=== PATIENT | female | born 1985 | race Caucasian/White ===

== ENCOUNTER 2016-11-30 13:51 | Emergency (ER) | payer MEDICAID ==
--- NOTE | 2016-11-30 15:46 | ER Document Report ---
HPI - HPI Pain Level: 0 Context: Patient is a 31-year-old female presents to the ED complaining of a pruritic rash to her hands, neck, arms, and a few spots on her back. Patient states that she had something like this before and was diagnosed as a contact dermatitis. Patient states that she is new to the area. She denies any recent insect bites, change in detergents, new clothes, new foods/drinks. She questions exposure to poisonous plants. Patient does have chronic allergies and takes Claritin once a day. She has been applying [id number] steroid cream with minimal benefit. He has not noticed any purulent discharge, red streaks, fever, URI, sore throat, chest pain, palpitations, shortness of breath , cough, abdominal pain, N/V/D/C, or dysuria. - ROS Notes: REVIEW OF SYSTEMS: CONSTITUTIONAL : Denies fever, chills, or sweats. Denies recent illness. EENT: Denies eye, ear, throat, or mouth pain or symptoms. Denies nasal or sinus congestion or discharge. Denies throat, tongue, or mouth swelling or difficulty swallowing. CARDIOVASCULAR: Denies chest pain. Denies palpitations or racing or irregular heart beat. Denies ankle edema. RESPIRATORY: Denies cough, cold, or chest congestion. Denies shortness of breath, difficulty breathing, or wheezing. GASTROINTESTINAL: Denies abdominal pain or distention. Denies nausea, vomiting , or diarrhea. Denies blood in vomitus, stools, or per rectum. Denies black, tarry stools. Denies constipation. GENITOURINARY: Denies difficulty urinating, painful urination, burning, frequency, blood in urine, or discharge. FEMALE GENITOURINARY: Denies vaginal bleeding, heavy or abnormal periods, irregular periods. Denies vaginal discharge or odor. MUSCULOSKELETAL: Denies back or neck pain or stiffness. Denies joint pain or swelling. SKIN: as above. HEMATOLOGIC : Denies easy bruising or bleeding. LYMPHATIC: Denies swollen, enlarged glands. NEUROLOGICAL: Denies confusion or altered mental status. Denies passing out or loss of consciousness. Denies dizziness or lightheadedness. Denies headache. Denies weakness or paralysis or loss of use of either side. Denies problems with gait or speech. Denies sensory loss, numbness, or tingling. Denies seizures. PSYCHIATRIC: Denies anxiety or stress. Denies depression, suicidal ideation, or homicidal ideation. ALL OTHER SYSTEMS REVIEWED AND NEGATIVE. Dictation was performed using [employer] voice recognition software - DERM Skin Color: Normal Past Medical History - Social History Smoking Status: Never Smoker Frequency of alcohol use: Occasional Drug Abuse: None Family History: Reviewed & Not Pertinent Patient has suicidal ideation: No Patient has homicidal ideation: No Renal/ Medical History: Denies: Hx Peritoneal Dialysis Vertical Provider Document - CONSTITUTIONAL Notes: PHYSICAL EXAMINATION: GENERAL: Well-appearing, well-nourished and in no acute distress. HEAD: Atraumatic, normocephalic. EYES: Pupils equal round and reactive to light, extraocular movements intact, sclera anicteric, conjunctiva are normal. ENT: EAC clear b/l. TM's intact b/l without erythema, fluid, or perforation. Nares patent and without discharge. oropharynx clear without exudates. No tonsilar hypertrophy or erythema. Moist mucous membranes. No sinus tenderness. NECK: Normal range of motion, supple without lymphadenopathy LUNGS: Breath sounds clear to auscultation bilaterally and equal. No wheezes rales or rhonchi. HEART: Regular rate and rhythm without murmurs, rubs, gallops. ABDOMEN: Soft, nontender, nondistended abdomen. No guarding, no rebound. No masses appreciated. Normal bowel sounds present. No CVA tenderness bilaterally. Musculoskeletal: FROM to passive/active. Strength 5+/5. Extremities: No cyanosis, clubbing, or edema b/l. Peripheral pulses 2+. Capillary refill less than 3 seconds. NEUROLOGICAL: Cranial nerves grossly intact. Normal speech, normal gait. Normal sensory, motor exams PSYCH: Normal mood, normal affect. SKIN: Warm, Dry, normal turgor. + small (0.5-1cm) maculopapular erythemic areas on the posterior hands b/l, arms, posterior neck, superior back. Non- tender. No d/c, streaks, or abscess. - INFECTION CONTROL TRAVEL OUTSIDE OF THE [place] IN LAST 30 DAYS: No - RESPIRATORY O2 Sat by Pulse Oximetry: 99 Course - Re-evaluation Re-evalutation: 11/30/16 16:01 31-year-old female who presents with a dermatitis, suspect contact dermatitis. Vitals are stable. PE otherwise unremarkable without any red flag symptoms. Solu-Medrol 125 mg given IM today. I will send her home with a Medrol Dosepak. Advised to refrain from [id number] ointments until p.o. medications are finished. She may continue to use her Claritin and/or Benadryl as needed. Encouraged patient to establish with a PCM. Consider consult with dermatology should symptoms persist. 11/30/16 16:04 - Vital Signs Vital signs: Temp Pulse Resp BP Pulse Ox 98.7 F 80 16 116/76 99 11/30/16 14:03 11/30/16 14:03 11/30/16 14:03 11/30/16 14:03 11/30/16 14:03 Discharge - Discharge Clinical Impression: Dermatitis Condition: Stable Disposition: HOME, SELF-CARE Instructions: Corticosteroid Medication ([facility]), Topical Steroid Cream or Ointment ([facility]) Additional Instructions: Take medication as directed. Keep the skin clean and dry. Monitor for any signs of fever, purulent drainage, red streaks, pain, or worsening rash. Establish with a PCM. Return to the ED and/or urgent care as needed for worsening symptoms. Consider consult with dermatology should symptoms persist. Prescriptions: Methylprednisolone [Medrol Dosepack (4 mg/Tab) 21 Tab/Dosepak] 4 mg PO ASDIR PRN #21 tab.ds.pk PRN Reason:
[2016-11-30] MEDS ORDERED: METHYLPREDNISOLONE INJ 125 MG/2 ML SDV IV ONE (15:52)
[2016-11-30] MEDS ORDERED: METHYLPREDNISOLONE INJ 125 MG/2 ML SDV IM ONE (16:38)
[2016-11-30 17:06] VITALS: BP 111/84
== END 2016-11-30 17:07 | disposition home or self-care (01) ==
LOC: ER 13:51
DX: L30.9 Dermatitis, unspecified (principal)
CPT/HCPCS: 99282; 96372; J2930

== ENCOUNTER 2016-12-14 11:43 | Emergency (ER) | payer MEDICAID ==
[2016-12-14 12:06] VITALS: BP 115/77
[2016-12-14] MEDS ORDERED: PREDNISONE 20 MG TABLET PO ONE (12:24)
--- NOTE | 2016-12-14 12:24 | ER Document Report ---
HPI - HPI Patient complains to provider of: skin rash Onset: Other - 2 wks Onset/Duration: Persistent Quality of pain: No pain Pain Level: Denies Context: Patient presents complaining of pruritic skin rash the flexural aspect of bilateral upper extremities and posterior knee area. Patient also complains of rash to dorsal aspect of bilateral hands that has had some mild blistering. Patient denies any new contacts, foods, detergents or lotions. Patient denies any new medications. Patient does report a previous history of eczema. Patient was evaluated for this recently in the emergency department and put on a short course of steroid medication. Patient states rash initially resolved but after she finished the steroids the rash returned. Associated Symptoms: Other - rash. denies: Fever Exacerbated by: Denies Relieved by: Denies Similar symptoms previously: Yes Recently seen / treated by doctor: Yes - ROS ROS below otherwise negative: Yes Systems Reviewed and Negative: Yes All other systems reviewed and negative - CONSTITUTIONAL Constitutional: DENIES: Fever, Chills - EENT EENT: DENIES: Sore Throat - RESPIRATORY Respiratory: DENIES: Coughing - GASTROINTESTINAL Gastrointestinal: DENIES: Nausea, Patient vomiting - MUSCULOSKELETAL Musculoskeletal: DENIES: Extremity pain - DERM Skin Color: Normal Skin Problems: Rash Past Medical History - General Information source: Patient - Social History Smoking Status: Never Smoker Frequency of alcohol use: Occasional Drug Abuse: None Occupation: none Lives with: Family Family History: Reviewed & Not Pertinent Patient has suicidal ideation: No Patient has homicidal ideation: No Renal/ Medical History: Denies: Hx Peritoneal Dialysis Skin Medical History: Reports Hx Eczema Surgical Hx: Negative Vertical Provider Document - CONSTITUTIONAL Agree With Documented VS: Yes Exam Limitations: No Limitations General Appearance: WD/WN, No Apparent Distress - INFECTION CONTROL TRAVEL OUTSIDE OF THE [place] IN LAST 30 DAYS: No - HEENT HEENT: Atraumatic, Normal ENT Exam - NECK Neck: Normal Inspection - RESPIRATORY Respiratory: Breath Sounds Normal, No Respiratory Distress O2 Sat by Pulse Oximetry: 96 - CARDIOVASCULAR Cardiovascular: Regular Rate, Regular Rhythm, No Murmur - BACK Back: Normal Inspection - MUSCULOSKELETAL/EXTREMETIES Musculoskeletal/Extremeties: MAEW - NEURO Level of Consciousness: Awake, Alert, Appropriate Motor/Sensory: No Motor Deficit - DERM Integumentary: Warm, Dry, Rash - Erythematous patchy rash with scattered vesicular lesions concerning for contact dermatitis to dorsal aspect of bilateral hands. Patient with scaling mildly erythematous rash to antecubital fossa bilateral arms Course - Vital Signs Vital signs: Temp Pulse Resp BP Pulse Ox 98.4 F 83 20 115/77 96 12/14/16 12:04 12/14/16 12:04 12/14/16 12:04 12/14/16 12:04 12/14/16 12:04 Discharge - Discharge Clinical Impression: Eczema Qualifiers: Eczema type: unspecified Qualified Code(s): L30.9 - Dermatitis, unspecified Contact dermatitis Qualifiers: Contact dermatitis type: unspecified Contact dermatitis trigger: unspecified trigger Qualified Code(s): L25.9 - Unspecified contact dermatitis, unspecified cause Condition: Stable Disposition: HOME, SELF-CARE Instructions: Contact Dermatitis ([facility]), Atopic Dermatitis (Eczema) ([facility]), Steroid Medication, Use of Diphenhydramine Additional Instructions: Return immediately for any new or worsening symptoms Followup with your primary care provider, call tomorrow to make a followup appointment Follow up with dermatology for further evaluation, call for an appointment Prescriptions: Prednisone [Deltasone 5 mg Tablet] 5 mg PO ASDIR PRN #100 tablet PRN Reason: Referrals: JASPER WEINER DO [ACTIVE STAFF] - Follow up in 3-5 days
== END 2016-12-14 12:45 | disposition home or self-care (01) ==
LOC: ER 11:43
DX: L25.9 Unspecified contact dermatitis, unspecified cause (principal)
CPT/HCPCS: 99282; J7512

== ENCOUNTER 2017-01-01 11:31 | Emergency (ER) | payer MEDICAID ==
[2017-01-01] MEDS ORDERED: EPINEPHRINE INJ/PF 1 MG/1 ML AMPULE IM ONE (12:33)
[2017-01-01] MEDS ORDERED: METHYLPREDNISOLONE ACETATE INJ 40 MG/1 ML ML IM PRN (12:33)
[2017-01-01] MEDS ORDERED: LORATADINE 10 MG TABLET PO ONE (12:35)
[2017-01-01] MEDS ORDERED: FAMOTIDINE 20 MG TABLET PO ONE (12:35)
[2017-01-01] MEDS ORDERED: METHYLPREDNISOLONE 4 MG TABLET PO ONE ×2 (13:06→13:30)
--- NOTE | 2017-01-01 13:10 | ER Document Report ---
HPI - HPI Patient complains to provider of: rash and facial swelling Pain Level: 1 Context: Patient is a 31-year-old female who returns emergency department complaining of facial swelling and a rash on her left hand. Patient states that she moved here in August and since September has had rashes on and off requiring steroids which completely relieved the rash. Patient states that she initially presented to urgent care with a rash on her left hand was given extra medication and it went away. Patient states that she has been evaluated twice in the emergency department with initial presentation of a rash on her left hand and facial swelling. She states that she is on steroids the swelling and rash completely resolved. But the day after she stopped taking steroids at all returns. Patient states that she has noted that she has used a new laundry detergent as well as baby wipes over the past 5 weeks. She has since switched over the past 2 days. She is also tried to avoid petting her dog for concern of any plants alleles on his for her. Patient states she has an appointment scheduled with her primary care provider on of this week to be referred to a derrick engineer. She states that she does not have any other allergies, any other medical problems. She states that the rashes are not itchy and that the swelling in her eyes is not itchy. - CARDIOVASCULAR Cardiovascular: DENIES: Chest pain - DERM Skin Color: Normal Past Medical History - Social History Smoking Status: Former Smoker Chew tobacco use (# tins/day): No Frequency of alcohol use: Occasional Drug Abuse: None Family History: Reviewed & Not Pertinent Patient has suicidal ideation: No Patient has homicidal ideation: No Renal/ Medical History: Denies: Hx Peritoneal Dialysis Skin Medical History: Reports Hx Eczema Past Surgical History: Reports: Hx Breast Surgery - augmentation, Hx Kidney ( Renal Surgery) - stent placement & removal - Immunizations Hx Diphtheria, Pertussis, Tetanus Vaccination: Yes Vertical Provider Document - CONSTITUTIONAL Agree With Documented VS: Yes Exam Limitations: No Limitations General Appearance: WD/WN, No Apparent Distress - INFECTION CONTROL TRAVEL OUTSIDE OF THE [place] IN LAST 30 DAYS: No - HEENT HEENT: Atraumatic, Normal ENT Exam, Normocephalic, PERRLA Notes: Uvula midline. Airway patent. No evidence of tonsillar enlargement, peritonsillar abscess, retropharyngeal abscess. - NECK Neck: Normal Inspection. negative: Lymphadenopathy-Left, Lymphadenopathy-Right - RESPIRATORY Respiratory: Breath Sounds Normal, No Respiratory Distress, Chest Non-Tender. negative: Rales, Rhonchi, Wheezing O2 Sat by Pulse Oximetry: 98 - CARDIOVASCULAR Cardiovascular: Regular Rate, Regular Rhythm, No Murmur Pulses: Normal: Radial - GI/ABDOMEN Gastrointestinal: Abdomen Soft, Abdomen Non-Tender, No Organomegaly, Normal Bowel Sounds - MUSCULOSKELETAL/EXTREMETIES Musculoskeletal/Extremeties: MAEW, FROM, Non-Tender, No Edema. negative: Eccymosis - NEURO Level of Consciousness: Awake, Alert, Appropriate Motor/Sensory: No Motor Deficit, No Sensory Deficit - DERM Integumentary: Warm, Dry, Rash - papular rash noted on the volar surface of the patient does have evidence of left hand without any evidence of erythema, tenderness. Swelling noted around eyes with mild erythema, nontender to palpation. No evidence of surrounding cellulitis. Course - Re-evaluation Re-evalutation: 01/01/17 14:28 Patient is a 31-year-old female who is hemodynamic stable, no acute distress and afebrile. No evidence of respiratory distress. Patient seems to be suffering from a subacute contact dermatitis with systemic reaction. Will place patient on steroid taper and to follow-up with her primary care and possible referral to an english and reading instructor. Patient is agreeable with plan. Patient stable for discharge - Vital Signs Vital signs: Temp Pulse Resp BP Pulse Ox 98.5 F 103 H 16 127/86 H 98 01/01/17 11:35 01/01/17 11:35 01/01/17 11:35 01/01/17 11:35 01/01/17 11:35 Discharge - Discharge Clinical Impression: Atopic dermatitis Qualifiers: Atopic dermatitis type: unspecified Qualified Code(s): L20.9 - Atopic dermatitis, unspecified Condition: Good Disposition: HOME, SELF-CARE Instructions: Contact Dermatitis ([facility]) Additional Instructions: Take medications as prescribed: Over the counter pepcid, zyrtec and benadryl as dosed on packaging Prescriptions: Methylprednisolone [Medrol Dosepack (4 mg/Tab) 21 Tab/Dosepak] 4 mg PO ASDIR PRN #21 tab.ds.pk PRN Reason: Referrals: ROHITH BOSCH PA-C [Primary Care Provider] - Follow up as needed MARTITA HANSEN MD [ACTIVE STAFF] - Follow up as needed (he will do allergy testing)
[2017-01-01 14:08] VITALS: BP 121/71
== END 2017-01-01 13:53 | disposition home or self-care (01) ==
LOC: ER 11:31
DX: L20.9 Atopic dermatitis, unspecified (principal); R22.0 Localized swelling, mass and lump, head; Z87.891 Personal history of nicotine dependence
CPT/HCPCS: 99282; 96372; J3490; J0171; J7509